=== PATIENT | female | born 1990 | race Caucasian/White ===

== ENCOUNTER 2017-03-29 15:31 | Inpatient (IN) ==
[2017-03-29] MEDS ORDERED: Naloxone 0.4 MG/ML INJ IVP PRN (15:56)
[2017-03-29] MEDS ORDERED: Ondansetron 4 MG/2 ML VIAL IVP PRN (15:56)
[2017-03-29] MEDS ORDERED: Famotidine 20 MG/2 ML VIAL IVP PRN (15:56)
[2017-03-29 16:21] LABS: Basophils % 0.1 %; Eosinophils # 0.1 K/mcL (0.0-0.6); Eosinophils % 0.8 %; Hematocrit 36.4 % (35.3-44.9); Hemoglobin 11.8 g/dL (11.5-15.4); Immature Granulocytes % 0.5 % (0-4); Lymphocytes # 1.4 K/mcL (0.6-4.6); Lymphocytes % 16.8 %; Mean Corpuscular HGB Conc 32.4 g/dL (31.6-35.5); Mean Corpuscular Hemoglobin 28.8 pg (28.0-33.3); Mean Corpuscular Volume 88.8 fL (83.0-100.0); Monocytes # 0.6 K/mcL (0.0-1.3); Monocytes % 7.1 %; Neutrophils # 6.4 K/mcL (1.6-8.9); Platelet Count 147 K/mcL (140-400); Red Cell Distribution Width 14.2 % (11.5-14.5); Segmented Neutrophils % 74.7 %
[2017-03-29 16:27] LABS: Amphetamine Screen,Urine Negative ng/mL (Cutoff=1000); Barbiturate Screen,Urine Negative ng/mL (Cutoff=200); Benzodiazepines Screen,Urine Negative ng/mL (Cutoff=200); Cannabinoid Screen,Urine Negative ng/mL (Cutoff = 50); Cocaine Screen,Urine Negative ng/mL (Cutoff= 300); Opiate Screen,Urine Negative ng/mL (Cutoff=300); Phencyclidine Screen,Urine Negative ng/mL (Cutoff=25)
--- NOTE | 2017-03-29 16:31 | OB/GYN History & Physical ---
Date of Encounter: 03/29/17 Time of Encounter: 16:28 Assessment and Plan (1) SROM (spontaneous rupture of membranes) Current visit: Yes Status: Acute Patient states that her water broke around 1440 today. 1-2/-1 Nitrazine positive CBC UDS LR 125 ml/hr Monitoring Plan for (2) 36 weeks gestation of Current visit: Yes Status: Acute Patient is 36w6d (3) Uterine contractions Current visit: Yes Status: Acute Patient states that she has been having contractions today. Contractions every approximately every 3-4 minutes on the monitor. History of Present Illness Chief complaint: SROM HPI: Ms. Hagan is a 26 year old female at 36w6d presents to L&D for SROM. She stats that this occurred around 1440 today. Reports clear fluid and mucus when her water broke. Denies any vaginal bleeding or discharge. States that she has been having contractions today but has not timed them. Reports good movement. Denies any complications with this . See Dr. Hill Blood Type O Positive GBS Negative Rubella IgG antibody positive VZV IgG antibody Positive All other serologies negative I examined this patient and my medical decision-making was reviewed with the Resident Physician. I agree with the documented findings, disposition and treatment plan as described except to the extent set forth below. JUAN Jerry Past Med Surg Social Fam HX - Past Medical History Source: patient Medical history: migraine Psychiatric history: no psych history - Past Surgical History Surgical History: other (D&C) - Social History Smoking Status: Former smoker Smokeless Tobacco Status: No Alcohol use: rarely Drug use: none Obstetrical History - Pregnancies : 3 Para: 1 Term: 1 : 0 Ab's: 1 Livin - History/Complications History/Complications: Patient states that she had a terminated due to failure of growth. Medications and Allergies 3 Allergy/AdvReac Type Severity Reaction Status Date / Time No Known Allergies Allergy Verified 02/20/17 13:00 Review of System OB All systems PM: reviewed and no additional remarkable complaints except as stated Exam - Constitutional Constitutional: well developed, well nourished, no acute distress, average body habitus - HEENT HEENT: Normocephaly, Mucus Membranes Moist - Lungs Respiratory exam: CTAB - Cardiovascular Cardiovascular exam: RRR, +S1, +S2 - Abdomen Abdomen: Present: bowel sounds normal, gravid, diffuse tenderness - Extremities Extremities exam: full ROM, normal capillary refill - Cervix Dilation: 1 ((1-2) per nursing) Effacement: 80 (per nursing) Station: -1 Results Result Diagrams: 03/29/17 16:10 All other labs normal. - VTE Reasons for not Prescribing Prophylaxis: Treatment not Indicated - Low risk for VTE
[2017-03-29] MEDS: Ringers Solution, Lactated 1,000 ML IVC SCH (20:28)
[2017-03-29] MEDS: Oxytocin 20 units/ LR 1000 mL 20 UNIT/1,000 ML BAG IVC SCH (20:34)
--- NOTE | 2017-03-29 21:36 | OB Labor Progress Note ---
Date of Encounter: 03/29/17 Time of Encounter: 21:34 Labor Progress Note - Subjective Subjective: Patient resting in bed with daughter at her side. Patient reports pain 5/10. Pitocin at 4 milliunits. Patient denies any questions or concerns at this time. - Heart Tones Heart Tones: 120 bpm moderate variability +15x15 accels no decels noted. Cat. 1 tracing. - [place]: 2-4 min apart - Interventions Interventions: At bedside to discuss POC, efm strip reviewed. - Plan Plan: Continue labor management.
--- NOTE | 2017-03-29 22:12 | OB Labor Progress Note ---
Date of Encounter: 03/29/17 Time of Encounter: 22:09 Labor Progress Note - Subjective Subjective: Patient reports pain increasing at this time. Patient requests to be checked. - Cervix Cervix: 3/80/-1 - Heart Tones Heart Tones: 120 bpm moderate variability, variables noted. - [place]: 2-3 min apart - Interventions Interventions: SVE, IUPC placed without difficulty. Patient tolerated well. Patient repositioned - Plan Plan: Continue labor management.
[2017-03-29] MEDS: *HR* Nalbuphine 20 MG/ML AMPUL IVP PRN (22:35)
[2017-03-30] MEDS: *HR* Nalbuphine 20 MG/ML AMPUL IVP PRN (00:46)
[2017-03-30] MEDS: Ringers Solution, Lactated 1,000 ML IVC SCH ×3 (00:50→06:14)
[2017-03-30] MEDS ORDERED: *HR* Ropivacaine/PF 0.2% 10 ML AMPUL EP ONE (02:35)
[2017-03-30] MEDS ORDERED: *HR* FentaNYL (PF) 100 MCG/2 ML VIAL EP ONE (02:35)
--- NOTE | 2017-03-30 02:39 | Anesthesia Evaluation PreOp ---
Date of Encounter: 03/30/17 Time of Encounter: 02:36 - Past History Planned Operation: helga Cardiac History: Denies any Significant Hx Pulmonary History: Denies Any Significant HX COMIC ARTIST History: Denies Any Significant HX Other Medical History: Denies Any Significant HX, GERD Anesthesia History: No Prior Anesthetic Complications, Past Anesthesia : Yes Test: Positive Alcohol Use: rarely Drug use: none Medications and Allergies 3 Allergy/AdvReac Type Severity Reaction Status Date / Time No Known Allergies Allergy Verified 02/20/17 13:00 - Meds/Allergy Pre-op Review Medications Reviewed: Yes Allergies Reviewed: Yes Beta Blockers on Current Med List: No Anesthesia Results - Labs 03/29/17 16:10 Anesthesia Exam Height: 5'2" Weight: 84 NPO (# of Hours): 6 Pain Scale: 8 Pain Scale Used: Numeric (1 - 10) - HEENT Pupil (Motor): Pupils equal Mallampati: II Teeth: Normal Oral Opening: Greater than 3 - COMIC ARTIST LOC: Oriented COMIC ARTIST Motor: Normal RUE, Normal LUE, Normal RLE, Normal LLE, Normal Face COMIC ARTIST Sensory: Normal: RUE, LUE, RLE, LLE, Face - Cardiac Rhythm: Regular Murmur: None - Pulmonary Breath Sounds: bilateral Clear Respiratory Effort: Symmetrical Anesthesia Assess/Plan ASA Score: 2 Modified Angela Scale for Level of Consciousness: Cooperative, oriented, and tranquil Anesthetic Plan: Regional Autologous Blood: No Monitoring Plan: Standard Monitors Recovery Plan: Other (risks discussed questions answered, consented)
[2017-03-30] MEDS ORDERED: *HR* Ropivacaine/PF 0.2% 10 ML AMPUL ONE ×2 (02:40→08:23)
[2017-03-30] MEDS ORDERED: Epidural Premix (fent/bupiv) 110 ML EP ONE (02:40)
[2017-03-30] MEDS ORDERED: *HR* FentaNYL (PF) 100 MCG/2 ML VIAL ONE (02:41)
[2017-03-30] MEDS ORDERED: Epidural Premix (fent/bupiv) 110 ML EP SCH (02:45)
--- NOTE | 2017-03-30 03:04 | Anesthesia Procedures ---
Date of Encounter: 03/30/17 Time of Encounter: 03:02 Procedures: Anesthesia - Epidural/Spinal Patient ID/Chart reviewed: Yes Patient examined: Yes OB Eval: Gestational age: 36 OB Eval: : 3 OB Eval: Hx Para: 1 OB Eval: Dilated at (cm): 5 OB Eval: Contractions: Non-stressed pattern Consent Obtained: Yes Supplemental Oxygen: None/Room Air Site Prep: Aseptic Technique, Sterile prep and drape, 0.5% Chlorhexidine/Alcohol Patient position: upright Local Anesthetic: Lidocaine 1% Amount of Local Anesthetic used: 3 Touhy Needle Gauge: 18 Touhy Needle Depth (cm): 7 Catheter Depth at Skin (cm): 18 Test Dose (1.5% Lido + Epi): Volume given (mls): 3 Test Dose Result: Negative Loading Dose: Fentanyl (mcg): 100 Loading Dose: Other: rop 0.2% 10cc Loading Dose Administered: Thru Touhy Needle Infusion Med: 0.125% Bupivacaine w/ 2 mcg/ml Fentanyl Infusion Rate (mls/hr): 14 (pcea 5cc q30") Catheter Secured in Place: Tegaderm Interspace Used: L2-L3 Loss of Resistance (JACKI): Yes Blood: No CSF: No Paresthesia: No Procedure: aseptic, sadaf well, effective Vitals + FHT's: 112/70 82 16 fht 128
[2017-03-30] MEDS ORDERED: 0.9 % Sodium Chloride 1,000 ML ONE (07:53)
[2017-03-30] MEDS ORDERED: Metoclopramide 10 MG/2 ML VIAL IVP ONE (09:00)
[2017-03-30] MEDS ORDERED: Terbutaline 1 MG/ML VIAL SQ ONE (09:03)
--- NOTE | 2017-03-30 09:07 | OB Labor Progress Note ---
Date of Encounter: 03/30/17 Time of Encounter: 09:04 Labor Progress Note - Subjective Subjective: Patient is 7 cm and having deep variable decelerations have not responded to O2 and amnioinfusion. - Cervix Cervix: 7 cm - Heart Tones Heart Tones: heart tracing shows a baseline of 120 with deep variables to 90. Good variability is noted. - Plan Plan: Risk and benefits of primary low transverse section were discussed.
[2017-03-30] MEDS ORDERED: Lidocaine/EPI 1:200k 2% PF 20 ML VIAL ONE (09:18)
[2017-03-30] MEDS ORDERED: Ringers Solution, Lactated 1,000 ML ONE ×2 (09:31→09:56)
[2017-03-30] MEDS ORDERED: *HR* Oxytocin 10 UNIT/ML VIAL IM ONE ×2 (09:31→09:56)
[2017-03-30] MEDS ORDERED: *HR* Morphine Sulfate/PF 5 MG/10 ML AMPUL ONE (09:39)
[2017-03-30] MEDS ORDERED: *HR* Morphine 2 MG/ML SYRINGE IVP PRN (09:53)
[2017-03-30] MEDS ORDERED: Ondansetron 4 MG/2 ML VIAL IVP PRN ×2 (09:54→13:04)
[2017-03-30] MEDS ORDERED: Dexamethasone 4 MG/ML VIAL IVP ONE (09:54)
[2017-03-30] MEDS ORDERED: *HR* Promethazine 25 MG/ML VIAL IVP PRN (09:54)
[2017-03-30] MEDS ORDERED: Ondansetron 4 MG/2 ML VIAL IVP ONE (09:54)
[2017-03-30] MEDS ORDERED: Ibuprofen 400 MG TABLET PO PRN (09:54)
--- NOTE | 2017-03-30 10:20 | OB/GYN Procedure Note ---
Section - Date of procedure: 03/30/17 Preop diagnosis: category 2 FHT tracing Post-op diagnosis: other (Placental abruption) Procedure: primary low transverse Surgeon: Bayron Blunt Estimated blood loss (cc): 500 Anesthesiologist: Radhika Pinedo Anesthesia Type: General (Epidural) section complications: none Disposition: PACU Specimens: Placenta - (s) Infant A Delivery Date: 03/30/17 Delivery Time: 09:31 Presentation: vertex Position: LOP Gender: Male Viability: Viable Pounds: 5 Ounces: 12 at 1 minute: 8 at 5 minutes: 9 Specimens collected: cord blood Placenta: complete extraction - Narrative Narrative: Patient was taken to the operating room. Anesthesia staff felt that the epidural was not adequate so decision was made to put the patient to sleep. Patient was placed in supine position and prepped and draped in usual manner. After appropriate timeout, general anesthesia was achieved. The abdomen was entered through standard Maylard incision. The Lisa retractor was placed. Peritoneum overlying the lower uterine segment was incised in the U-shaped fashion. Uterine cavity was entered and extended laterally. With fundal pressure the head was delivered. suctioned on delivery of the head. The remainder was delivered. The umbilical cord doubly clamped and cut and the was handed to nursery staff for further evaluation. Placenta was removed and there is clots consistent with abruption. The uterus was closed with 0 Monocryl in a single layer. After assurance of hemostasis the uterus was placed back within the abdominal cavity. The surgical team then changed gloves. Peritoneum was approximated with a 2-0 Vicryl. After assurance of hemostasis, the abdomen was closed in a fashion with a 0 Vicryl on the fascia and a 3-0 Monocryl in the skin. Sterile dressing was applied. Patient did well and was taken to recovery in satisfactory condition. Counts were correct.
[2017-03-30] MEDS: Oxytocin 20 units/ LR 1000 mL 20 UNIT/1,000 ML BAG IVC SCH (11:50)
[2017-03-30] MEDS ORDERED: Acetaminophen 325 MG TABLET PO PRN (13:04)
[2017-03-30] MEDS ORDERED: Metoclopramide 10 MG/2 ML VIAL IVP PRN (13:04)
[2017-03-30] MEDS ORDERED: Oxytocin 20 units/ LR 1000 mL 20 UNIT/1,000 ML BAG IVC SCH (13:04)
[2017-03-30] MEDS ORDERED: Sennosides 8.6 MG TABLET PO PRN (13:04)
[2017-03-30] MEDS ORDERED: Simethicone 80 MG TAB.CHEW PO PRN (13:04)
[2017-03-30] MEDS: Ibuprofen 600 MG TABLET PO PRN (20:26)
[2017-03-31 03:32] LABS: Basophils % 0.1 %; Eosinophils % 0.2 %; Hematocrit 27.1 % (35.3-44.9); Immature Granulocytes % 0.3 % (0-4); Lymphocytes # 1.7 K/mcL (0.6-4.6); Lymphocytes % 13.2 %; Mean Corpuscular HGB Conc 32.8 g/dL (31.6-35.5); Mean Corpuscular Hemoglobin 29.5 pg (28.0-33.3); Mean Corpuscular Volume 89.7 fL (83.0-100.0); Mean Platelet Volume 12.3 fL (9.4-12.4); Monocytes # 1.1 K/mcL (0.0-1.3); Monocytes % 8.6 %; Neutrophils # 9.9 K/mcL (1.6-8.9); Platelet Count 123 K/mcL (140-400); Red Blood Count 3.02 M/mcL (3.82-4.97); Red Cell Distribution Width 14.4 % (11.5-14.5); Segmented Neutrophils % 77.6 %
[2017-03-31 03:42] LABS: Hemoglobin 8.9 g/dL (11.5-15.4)
[2017-03-31] MEDS: *HR* OxyCODONE/APAP 5/325 TABLET PO PRN ×3 (06:06→20:10)
[2017-03-31] MEDS: Ibuprofen 600 MG TABLET PO PRN ×2 (08:12→21:41)
[2017-03-31] MEDS: Prenatal Vit/FA 1 EACH TABLET PO SCH (08:12)
--- NOTE | 2017-03-31 08:41 | OB/GYN Progress Note ---
Addendum entered and electronically signed by Mickey Mann DO 03/31/17 09: 21: Bowels sounds present in all quadrants Original Note: Date of Encounter: 03/31/17 Time of Encounter: 08:38 - Assessment and Plan (1) Status post primary low transverse section Current Visit: Yes Status: Acute Doing well s/p primary POD#1 Meeting post-op milestones, VSS Continue routine post-op care Encourage ambulation and po intake Anticipate discharge tomorrow (2) 36 weeks gestation of Current Visit: Yes Status: Acute Subjective - Subjective Principal diagnosis: s/p ceserean section Interval history: Pt is s/p ceserean section on POD#1. She reports she is doing well with no complaints. She is ambulating well, tolerating po intake, voiding well, and passing flatus. Her pain is well controlled with pain medication. I examined this patient and my medical decision-making was reviewed with the Resident Physician. I agree with the documented findings, disposition and treatment plan as described except to the extent set forth below. Patient reports: appetite normal, voiding normally, pain well controlled, ambulating normally : doing well Objective - Vital Signs Latest vital signs: Vital Signs Temp Pulse Pulse Resp BP Pulse Ox 03/31/17 08:24 16 03/31/17 03:51 98.0 F 90 16 102/69 96 03/31/17 00:12 98.0 F 81 16 101/71 97 03/30/17 19:53 97.8 F 80 16 95/58 98 03/30/17 16:45 16 03/30/17 16:15 98.7 F 80 12 117/60 99 03/30/17 15:04 98.5 F 79 80 16 111/72 98 03/30/17 14:00 98.1 F 73 73 16 121/78 98 03/30/17 13:30 98.6 F 71 12 106/71 97 03/30/17 13:04 16 03/30/17 13:00 98.6 F 77 12 117/80 97 Intake and Output 03/30/17 03/31/17 03/31/17 23:59 07:59 15:59 Intake Total 240 / 240 0 / 0 Output Total 950 / 950 500 / 500 Balance -710 / -710 -500 / -500 Intake: Oral 240 / 240 0 / 0 Output: Urine 500 / 500 Catheter 950 / 950 Other: Meal Dinner Percent of Meal Consumed 50% Weight 83.597 kg Patient Weight 03/31/17 23:59 Weight 83.597 kg - Exam Lungs: bilateral: normal Chest: Normal S1, Normal S2 Extremities: Present: normal, edema (mild bilaterally). Absent: tenderness Abdomen: Present: normal appearance, soft, gravid, tenderness (appropriately tender, no peritoneal signs) Incision: Present: normal (dressing in place - clean, dry, intact), dry, intact Uterus: Present: normal, firm Fundal Height: 2 (below umbilicus) - Labs Labs: Laboratory Results - last 24 hr 03/31/17 03:02 WBC 12.8 H RBC 3.02 L Hgb 8.9 L D Hct 27.1 L MCV 89.7 MCH 29.5 MCHC 32.8 RDW 14.4 Plt Count 123 L MPV 12.3 Immature Gran % 0.3 Seg Neutrophils % 77.6 Lymphocytes % 13.2 Monocytes % 8.6 Eosinophils % 0.2 Basophils % 0.1 Neutrophils # 9.9 H Lymphocytes # 1.7 Monocytes # 1.1 Eosinophils # 0.0 Basophils # 0.0 Immature Plt Fraction 9.0 H
[2017-04-01] MEDS: *HR* OxyCODONE/APAP 5/325 TABLET PO PRN ×2 (01:17→05:27)
[2017-04-01 07:30] VITALS: BP 104/69
--- NOTE | 2017-04-01 08:39 | Discharge Summary ---
Date of Encounter: 04/01/17 Time of Encounter: 08:36 - Discharge Diagnosis (1) anemia Priority: Secondary Status: Acute (2) Status post primary low transverse section Priority: Primary Status: Acute Comments: Pt meeting all post-op milestones. She desires discharge home today. - Discharge Medications Prescriptions: OxyCODONE/APAP 5/325 [Percocet 5/325 MG] 1 each PO Q4HR PRN #30 tablet PRN Reason: Moderate pain 4-6 Ibuprofen [Motrin] 600 mg PO Q6HR PRN #60 tablet PRN Reason: Cramping Docusate [Colace] 100 mg PO BID #60 capsule Ferrous Sulfate 325 mg PO DAILY #30 tablet Home Medications: Docusate [Colace] 100 mg PO BID #60 capsule 04/01/17 [Rx] Ferrous Sulfate 325 mg PO DAILY #30 tablet 04/01/17 [Rx] Ibuprofen [Motrin] 600 mg PO Q6HR PRN #60 tablet 04/01/17 [Rx] OxyCODONE/APAP 5/325 [Percocet 5/325 MG] 1 each PO Q4HR PRN #30 tablet 04/01/17 [Rx] Vit/FA 1 each PO DAILY tablet 04/01/17 [Rx] Simethicone [Gas-X] 80 mg PO TID PRN tab.chew 04/01/17 [Rx] Allergies/Adverse Reactions: 3 Allergy/AdvReac Type Severity Reaction Status Date / Time No Known Allergies Allergy Verified 02/20/17 13:00 Data Procedures and tests throughout hospitalization: Laboratory Tests 03/29/17 03/29/17 03/31/17 16:10 16:10 03:02 WBC 8.6 12.8 H RBC 4.10 3.02 L Hgb 11.8 8.9 L D Hct 36.4 27.1 L MCV 88.8 89.7 MCH 28.8 29.5 MCHC 32.4 32.8 RDW 14.2 14.4 Plt Count 147 123 L MPV 12.0 12.3 Immature Gran % 0.5 0.3 Seg Neutrophils % 74.7 77.6 Lymphocytes % 16.8 13.2 Monocytes % 7.1 8.6 Eosinophils % 0.8 0.2 Basophils % 0.1 0.1 Neutrophils # 6.4 9.9 H Lymphocytes # 1.4 1.7 Monocytes # 0.6 1.1 Eosinophils # 0.1 0.0 Basophils # 0.0 0.0 Immature Plt Fraction 9.0 H Urine Opiates Screen Negative Ur Barbiturates Screen Negative Ur Phencyclidine Scrn Negative Ur Amphetamines Screen Negative U Benzodiazepines Scrn Negative Urine Cocaine Screen Negative U Marijuana (THC) Screen Negative Date of admission: 03/29/17 15:31 Primary care physician: PCP NONE Discharging clinician: Rena Toscano Anticipated date of discharge: 04/01/17 - Patient Status Disposition: Home, Self-Care Condition: Good Functional capacity at discharge: independent ambulation Overall status at discharge: patient is progressing back to baseline - Discharge Instructions Follow Up With: NONE,PCP [Primary Care Provider] - Norma Hill MD [Partnered Physician] - - Diet and Activity Activity: increase activity as tolerated Diet: regular diet Hospital Course Reason for admission: rupture of membranes Delivery: section Episiotomy: none Laceration: none Other procedures: none complications: none Discharge diagnosis: delivery baby: male Hospital course: - Date of procedure: 03/30/17 Preop diagnosis: category 2 FHT tracing Post-op diagnosis: other (Placental abruption) Procedure: primary low transverse Surgeon: Bayron Blunt Estimated blood loss (cc): 500 Anesthesiologist: Radhika Pinedo Anesthesia Type: General (Epidural) section complications: none Disposition: PACU Specimens: Placenta - Infant (s) Infant A Infant Delivery Date: 03/30/17 Delivery Time: 09:31 Presentation: vertex Position: LOP Gender: Male Viability: Viable Pounds: 5 Ounces: 12 at 1 minute: 8 at 5 minutes: 9 Specimens collected: cord blood Placenta: complete extraction course: uncomplicated, NELIA dressing intact, discharge home POD#2, bottle feeding Time Attestation: Total time spent providing and/or coordinating discharge services: Time Spent: Less than 30 minutes - VTE Reasons for not Prescribing Prophylaxis: Treatment not Indicated - Low risk for VTE Documentation of Mechanical Device: Intermittent pneumatic compression device Exam - Constitutional Vitals: Temp Pulse Resp BP Pulse Ox 98.0 F 87 16 104/69 97 04/01/17 07:29 04/01/17 07:29 04/01/17 07:29 04/01/17 07:29 03/31/17 07:30 General appearance IM: A&O X 3 - Respiratory Respiratory exam: Present: CTAB - Cardiovascular Cardiovascular exam IM: Present: RRR, +S1, +S2 - GI/Abdominal GI/Abdominal exam IM: soft, tenderness (appropriately tender), no peritoneal signs - Rectal Rectal exam: deferred - Uterine Tone: Firm Uterus Position: 2 Fingers Below Umbilicus - Extremities Exam Extremities exam IM: Present: normal inspection - Neurological Exam Neurological exam: normal gait, oriented X3 - Psychiatric Additional comments: reports good mood
[2017-04-01] MEDS: Ibuprofen 600 MG TABLET PO PRN (08:53)
[2017-04-01] MEDS: Prenatal Vit/FA 1 EACH TABLET PO SCH (08:53)
== END 2017-04-01 11:00 | disposition home or self-care (01) | DRG 765 ==
LOC: 1NENULAB → OBSVTOIN 15:31 → 1NENUOBS 03-30 13:03
PROVIDERS: ADMIT Obstetrics & Gynecology; ATTEND Obstetrics & Gynecology